=== PATIENT | male | born 1970 | race Two or more races ===

== ENCOUNTER 2021-05-23 18:37 | Emergency (ER) | payer SELFPAY ==
[~2021-05-23] VITALS: Ht 170.2 cm; Wt 82.0 kg
[2021-05-23 18:39] VITALS: BP 135/68
== END 2021-05-23 20:44 | disposition left against medical advice (07) ==
LOC: ER 18:37
DX: T51.0X1A Toxic effect of ethanol, accidental (unintentional), initial encounter (principal); F10.229 Alcohol dependence with intoxication, unspecified; R07.89 Other chest pain; R00.0 Tachycardia, unspecified; Y90.9 Presence of alcohol in blood, level not specified; Y92.89 Other specified places as the place of occurrence of the external cause
CPT/HCPCS: 93005; 99283

== ENCOUNTER 2022-07-09 12:20 | Emergency (ER) | payer MEDICAID, OTHER ==
[~2022-07-09] VITALS: Ht 175.3 cm; Wt 73.0 kg
[2022-07-09 12:26] VITALS: BP 108/74
[2022-07-09] MEDS ORDERED: ACET-2708 MT (17:42)
== END 2022-07-09 17:51 | disposition home or self-care (01) ==
LOC: ER 13:03
DX: M25.561 Pain in right knee (principal)
CPT/HCPCS: 73560; 99281; 99283